=== PATIENT | female | born 1985 | race Caucasian/White ===

== ENCOUNTER 2019-01-03 12:17 | Emergency (ER) | payer OTHER ==
[~2019-01-03] VITALS: Ht 177.8 cm; Wt 145.4 kg
[2019-01-03 12:48] VITALS: BP 171/96
[2019-01-03 13:26] LABS: CLARITY,URINE CLEAR (Clear); COLOR,URINE YELLOW (Yellow); GLUCOSE, URINE NEGATIVE (Neg); KETONES,URINE NEGATIVE (Neg); LEUKOCYTE ESTERASE ,URINE NEGATIVE (Neg); NITRITES, URINE NEGATIVE (Neg); OCCULT BLOOD,URINE NEGATIVE (Neg); PROTEIN,URINE NEGATIVE (Neg); URINE HCG NEGATIVE (NEG); UROBILINOGEN,URINE 0.2 E.U/dL (0.2-1.0)
[2019-01-03 13:29] LABS: UA COLLECTION TYPE CLN CATCH MIDSTREAM
== END 2019-01-03 15:01 | disposition home or self-care (01) ==
LOC: ER 12:18
DX: R10.30 Lower abdominal pain, unspecified (principal)
CPT/HCPCS: 81003; 81025; 99283

== ENCOUNTER 2019-12-23 07:55 | Day surgery (SDC) | payer MEDICAID ==
[2019-12-17 12:19] LABS: BASOPHILS # (AUTO) 0.1 X10'3 (0-0.2); BASOPHILS % (AUTO) 0.9 % (0-1); EOSINOPHILS # (AUTO) 0.2 X10'3 (0-0.9); EOSINOPHILS % (AUTO) 2.9 % (0-6); LYMPHOCYTES # (AUTO) 3.2 X10'3 (1.1-4.8); LYMPHOCYTES % (AUTO) 39.8 % (21-51); MEAN CORPUSCULAR HEMOGLOBIN 30.9 PG (27.0-31.0); MEAN CORPUSCULAR VOLUME 90.8 FL (78-98); MEAN PLATELET VOLUME 9.1 FL (7.4-10.4); MONOCYTES # (AUTO) 0.9 X10'3 (0-0.9); NEUTROPHILS # (AUTO) 3.6 X10'3 (1.8-7.7); NEUTROPHILS % (AUTO) 45.4 % (42-75); PRE OP HEMATOCRIT 45.8 % (35.0-45.0); PRE OP HEMOGLOBIN 15.6 g/dL (12.0-16.0); PRE OP PLATELET COUNT 201 X10'3 (140-440); RED BLOOD COUNT 5.04 X10'6 (4.20-5.60); RED CELL DISTRIBUTION WIDTH 13.4 % (11.5-14.5)
[2019-12-17 12:24] LABS: CLARITY,URINE CLOUDY (Clear); COLOR,URINE YELLOW (Yellow); GLUCOSE, URINE NEGATIVE (Neg); KETONES,URINE NEGATIVE (Neg); LEUKOCYTE ESTERASE ,URINE LARGE (Neg); NITRITES, URINE NEGATIVE (Neg); OCCULT BLOOD,URINE NEGATIVE (Neg); PH,URINE 7.5 (4.8-8.0); PROTEIN,URINE NEGATIVE (Neg); UA COLLECTION TYPE NON-SPECIFIED; UROBILINOGEN,URINE 0.2 E.U/dL (0.2-1.0)
[2019-12-17 12:31] LABS: SQUAMOUS EPITHELIAL CELL,UR MANY /LPF (FEW)
[2019-12-17 12:33] LABS: RBC,URINE 0-2 /HPF (0-2); WBC,URINE 0-4 /HPF (0-4)
[2019-12-17 12:35] LABS: AMORPHOUS PHOSPHATES 2+; BACTERIA,URINE 1+ /HPF (Neg)
[2019-12-17 12:48] LABS: ALBUMIN 3.9 G/DL (3.4-5.0); ALKALINE PHOSPHATASE 37 IU/L (46-116); BLOOD UREA NITROGEN 13 MG/DL (7-18); BUN/CREATININE RATIO 15.7 (6.6-38.0); CALCIUM 9.5 MG/DL (8.5-10.1); CHLORIDE 105 MMOL/L (99-107); CREATININE 0.83 MG/DL (0.40-0.90); PRE OP ALT 38 U/L (30-65); PRE OP ANION GAP 13 (8-16); PRE OP GLUCOSE 81 MG/DL (70-104); PRE OP SODIUM 141 MMOL/L (135-145); TOTAL CARBON DIOXIDE 22.6 MMOL/L (24-32); TOTAL PROTEIN 7.7 G/DL (6.4-8.2); eGFR 79 ML/MIN
[2019-12-17 12:51] LABS: PRE OP AST 27 U/L (10-37); PRE OP POTASSIUM 4.7 MMOL/L (3.4-5.1)
[~2019-12-23] VITALS: Ht 177.8 cm; Wt 154.2 kg
[~2019-12-23 07:55] MED LIST: NO HOME MEDS; ceFAZolin 1,000 MG/D5W 50ML IVPB Premixed bag IV ONE; cefazolin/dext.iso 2gm/100ml 100 ML IV ONE; famotidine 20mg tablet PO ONE; ringers solution, lacted 1,000 ML IV SCH
[2019-12-23 08:05] VITALS: BP 123/67
[2019-12-23] MEDS ORDERED: ringers solution, lacted 1,000 ML IV SCH (09:29)
[2019-12-23] MEDS ORDERED: meperidine/PF 25mg/ml syringe IV PRN ×3 (09:30)
[2019-12-23] MEDS ORDERED: ondansetron/PF 4mg/2ml inj IV PRN (09:30)
[2019-12-23] MEDS ORDERED: proCHLORperazine 10 MG/2 ml inj IV PRN (09:30)
[2019-12-23] MEDS ORDERED: morphine 4 MG/ML inj SYRINge IV PRN ×2 (09:30)
[2019-12-23] MEDS ORDERED: LIDOcaine 1% 30ml preserv. free vial ONE (12:33)
[2019-12-23] MEDS ORDERED: epiNEPHrine 1 mg/ml inj ONE (12:33)
[2019-12-23] MEDS ORDERED: fentaNYL/PF 50MCG/1 ML 2ML syringe ONE (12:45)
[2019-12-23] MEDS ORDERED: MIDAZolam 5mg/5ml vial ONE (12:46)
[2019-12-23] MEDS ORDERED: propofol inj 20 ML IV ONE (13:17)
[2019-12-23] MEDS ORDERED: LIDOcaine 2% (20mg/ml) 5ml vial ONE (13:17)
[2019-12-23 13:21] VITALS: BP 131/84
--- NOTE | 2019-12-23 13:21 | NUR ---
Received from OR via [facility], accompanied by Anesthesiologist DR MISHRA and report given by Anesthesiologist. PT AWAKE, DENIES PAIN, LEFT NECK W/SMALL INCISION W/DERMABOND CDI. Addendum: 12/23/19 at 1347 by Mulu Camejo RN Amended: Links added.
[2019-12-23 13:31] VITALS: BP 130/80
[2019-12-23 13:41] VITALS: BP 134/90
[2019-12-23 13:51] VITALS: BP 141/75
[2019-12-23 14:01] VITALS: BP 135/74
--- NOTE | 2019-12-23 14:11 | NUR ---
D/C INSTRUCTIONS GIVEN AND GONE OVER W/PT WHO VERBALIZED UNDERSTANDING, PT D/CD TO HOME VIA W/C TO PRIVATE VEHICLE W/O INCIDENT. Addendum: 12/23/19 at 1425 by Mulu Camejo RN Amended: Links added.
== END 2019-12-23 14:11 | disposition home or self-care (01) ==
LOC: PAS 07:55
PROVIDERS: ATTEND Surgery
DX: L72.3 Sebaceous cyst (principal); J45.909 Unspecified asthma, uncomplicated; K21.9 Gastro-esophageal reflux disease without esophagitis; M19.90 Unspecified osteoarthritis, unspecified site; E66.01 Morbid (severe) obesity due to excess calories; Z68.42 Body mass index [BMI] 45.0-49.9, adult; Z90.710 Acquired absence of both cervix and uterus; Z90.49 Acquired absence of other specified parts of digestive tract; Z98.890 Other specified postprocedural states; Z87.891 Personal history of nicotine dependence; Z79.899 Other long term (current) drug therapy
CPT/HCPCS: 21555; 36415; 80053; 81001; 82948; 85025; J0171; J0690; J2001; J2250; J2704; J3010; J7120; A4615; A4618; A7000

== ENCOUNTER 2021-11-08 07:21 | Emergency (ER) | payer MEDICAID ==
[~2021-11-08] VITALS: Ht 177.8 cm; Wt 145.4 kg
[~2021-11-08 07:21] MED LIST changes: -ceFAZolin 1,000 MG/D5W 50ML IVPB Premixed bag IV ONE; -cefazolin/dext.iso 2gm/100ml 100 ML IV ONE; -famotidine 20mg tablet PO ONE; -ringers solution, lacted 1,000 ML IV SCH
[2021-11-08 07:43] VITALS: BP 156/104
[2021-11-08] MEDS ORDERED: FLUT16SP2 BOTHNARES (08:49)
[2021-11-08] MEDS ORDERED: METH4TAB3 PO (08:49)
[2021-11-08] MEDS ORDERED: AMOX-422 PO (08:49)
[2021-11-08] MEDS ORDERED: ALBU6.7H9 INH (08:49)
== END 2021-11-08 09:39 | disposition home or self-care (01) ==
LOC: ER 07:21
DX: J01.10 Acute frontal sinusitis, unspecified (principal); Z20.822 Contact with and (suspected) exposure to COVID-19; R09.81 Nasal congestion; R51.9 Headache, unspecified; Z79.2 Long term (current) use of antibiotics; Z79.899 Other long term (current) drug therapy
CPT/HCPCS: 87635; 99283; C9803

== ENCOUNTER 2022-11-01 06:57 | Day surgery (SDC) | payer MEDICAID ==
[2022-10-26 14:06] LABS: BASOPHILS # (AUTO) 0.1 X10'3 (0-0.2); BASOPHILS % (AUTO) 0.8 % (0-1); EOSINOPHILS # (AUTO) 0.2 X10'3 (0-0.9); EOSINOPHILS % (AUTO) 2.6 % (0-6); LYMPHOCYTES # (AUTO) 3.3 X10'3 (1.1-4.8); LYMPHOCYTES % (AUTO) 37.1 % (21-51); MEAN CORPUSCULAR HEMOGLOBIN 30.4 PG (27.0-31.0); MEAN CORPUSCULAR VOLUME 92.2 FL (78-98); MEAN PLATELET VOLUME 8.8 FL (7.4-10.4); MONOCYTES # (AUTO) 0.7 X10'3 (0-0.9); MONOCYTES % (AUTO) 8.1 % (2-12); NEUTROPHILS # (AUTO) 4.6 X10'3 (1.8-7.7); NEUTROPHILS % (AUTO) 51.4 % (42-75); PRE OP HEMATOCRIT 46.9 % (35.0-45.0); PRE OP HEMOGLOBIN 15.5 g/dL (12.0-16.0); PRE OP PLATELET COUNT 217 X10'3 (140-440); RED BLOOD COUNT 5.08 X10'6 (4.20-5.60); RED CELL DISTRIBUTION WIDTH 13.4 % (11.5-14.5)
[2022-10-26 14:23] LABS: ALBUMIN 3.9 G/DL (3.4-5.0); ALKALINE PHOSPHATASE 65 IU/L (46-116); BLOOD UREA NITROGEN 9 MG/DL (7-18); CHLORIDE 103 MMOL/L (99-107); CREATININE 0.82 MG/DL (0.40-0.90); PRE OP ALT 48 U/L (30-65); PRE OP ANION GAP 10 (8-16); PRE OP AST 17 U/L (10-37); PRE OP BILIRUB, TOTAL 0.5 MG/DL (0.0-1.0); PRE OP GLUCOSE 83 MG/DL (70-104); PRE OP POTASSIUM 4.3 MMOL/L (3.4-5.1); PRE OP SODIUM 137 MMOL/L (135-145); TOTAL CARBON DIOXIDE 24.2 MMOL/L (24-32); TOTAL PROTEIN 7.8 G/DL (6.4-8.2); eGFR 79 ML/MIN
[~2022-11-01] VITALS: Ht 175.3 cm; Wt 150.0 kg
[2022-11-01] VITALS (8 sets, daily range): BP systolic 114–139; BP diastolic 74–90
[~2022-11-01 06:57] MED LIST changes: +ceFAZolin inj. 3,000 MG in normal saline 100ml IV soln 100 ML IV ONE; +famotidine 20mg tablet PO ONE; +ringers solution, lacted 1,000 ML IV SCH
[2022-11-01] MEDS ORDERED: proCHLORperazine 10 MG/2 ml inj IV PRN (07:40)
[2022-11-01] MEDS ORDERED: meperidine/PF 25mg/ml syringe IV PRN ×3 (07:40)
[2022-11-01] MEDS ORDERED: ondansetron/PF 4mg/2ml inj IV PRN (07:40)
[2022-11-01] MEDS ORDERED: ringers solution, lacted 1,000 ML IV SCH (07:40)
[2022-11-01] MEDS ORDERED: morphine 4 MG/ML inj SYRINge IV PRN (07:40)
[2022-11-01] MEDS ORDERED: morphine 2 MG/ML inj. syringe IV PRN (07:40)
[2022-11-01] MEDS ORDERED: BUPIVAcaine 0.5% inj/PF 30 ML ONE (08:27)
[2022-11-01] MEDS ORDERED: LIDOcaine 1% 30ml preserv. free vial ONE (08:27)
[2022-11-01] MEDS ORDERED: ondansetron/PF 4mg/2ml inj ONE (09:13)
[2022-11-01] MEDS ORDERED: sevoflurane 250ml liquid IH ONE (09:13)
[2022-11-01] MEDS ORDERED: dexamethasone sod phosphate 10mg/ml inj ONE (09:13)
[2022-11-01] MEDS ORDERED: FENTANYL CITRATE/PF 50 MCG/1 ML VIAL ONE (09:23)
[2022-11-01] MEDS ORDERED: midazolam 1 mg/ML 2ml injection ONE (09:23)
[2022-11-01] MEDS ORDERED: propofol inj 20 ML IV ONE (09:29)
[2022-11-01] MEDS ORDERED: LIDOcaine 2% (20mg/ml) 5ml vial ONE (09:30)
[2022-11-01] MEDS ORDERED: BUPIVAcaine 0.5% inj/PF 30 ml vial IJ ONE (09:59)
--- NOTE | 2022-11-01 10:16 | NUR ---
Received from OR via , accompanied by Anesthesiologist TRIP AND OR NURSE and report given by Anesthesiolgist. PT IS DROWSY YET RESPONDS TO VERBAL STIMULI. DENIES PAIN OR DISCOMFORT. VSS. LOWER ABDOMINAL DRESSING; CDI Addendum: 11/01/22 at 1029 by Maris Sarkar RN Amended: Links added.
[2022-11-01] MEDS ORDERED: oxyCODONE/APAP 5-325mg tablet PO PRN (10:35)
--- NOTE | 2022-11-01 11:16 | NUR ---
PATIENT A&OX4, DENIES PAIN, V/S WNL, SCD OFF, 20G TO MAHESH D/C, I HAVE REVIEWED D/C INSTRUCTIONS WITH PATIENT INSTRUCTIONS WITH PATIENT AND THEY HAVE VERBALIZED UNDERSTANDING. PATIENT D/C HOME WITH ALL BELONGINGS AND FAMILY TRANSPORTED PATIENT HOME. Addendum: 11/01/22 at 1333 by Maris Sarkar RN Amended: Links added.
== END 2022-11-01 11:16 | disposition home or self-care (01) ==
LOC: PAS 06:57
PROVIDERS: ATTEND Surgery
DX: R19.09 Other intra-abdominal and pelvic swelling, mass and lump (principal); K21.9 Gastro-esophageal reflux disease without esophagitis; Z90.710 Acquired absence of both cervix and uterus; Z98.890 Other specified postprocedural states; Z87.891 Personal history of nicotine dependence; Z88.8 Allergy status to other drugs, medicaments and biological substances; Z79.899 Other long term (current) drug therapy; Z90.49 Acquired absence of other specified parts of digestive tract; Z91.09 Other allergy status, other than to drugs and biological substances; Z79.82 Long term (current) use of aspirin
CPT/HCPCS: 22903; 36415; 80053; 82948; 85025; 93005; J0690; J1100; J2175; J2250; J2405; J2704; J3010; J3490; J7030; J7120; S0020; Z7506; Z7508; Z7512; A4215; A4618; A7000